=== PATIENT | male | born 1985 | race Two or more races ===

== ENCOUNTER 2018-06-26 12:29 | Emergency (ER) | payer OTHER ==
[~2018-06-26] VITALS: Ht 180.3 cm; Wt 68.0 kg
--- NOTE | 2018-06-26 12:45 | NUR ---
patient presented to the ER c/o cp, left side and radiates to left arm. On room air, breathing evenly and unlabored. connected to the monitor, kept comfortable. will continue to monitor accordingly.
[2018-06-26] MEDS ORDERED: PHENYTOIN EXTENDED RELEASE 100 MG CAPSULE PO ONE ×2 (13:00→13:06)
[2018-06-26 14:07] VITALS: BP 125/71
--- NOTE | 2018-06-26 14:08 | NUR ---
Patient discharged in custody by PD in stable condition. Written and verbal after care instructions given. Patient verbalizes understanding of instruction.
== END 2018-06-26 14:08 ==
LOC: ER 12:29
DX: R07.89 Other chest pain (principal)
CPT/HCPCS: 71045-TC